=== PATIENT | female | born 1995 | race Two or more races ===

== ENCOUNTER 2023-05-15 14:11 | Outpatient (CLI) | payer OTHER | END 2023-05-15 15:59 | disposition home or self-care (01) | LOC: PRENATAL 14:11 | PROVIDERS: ATTEND Obstetrics & Gynecology Maternal & Fetal Medicine | DX: O35.3XX0 Maternal care for (suspected) damage to fetus from viral disease in mother, not applicable or unspecified (principal); O44.00 Complete placenta previa NOS or without hemorrhage, unspecified trimester; O99.210 Obesity complicating pregnancy, unspecified trimester; O41.00X0 Oligohydramnios, unspecified trimester, not applicable or unspecified; Z3A.30 30 weeks gestation of pregnancy ==

== ENCOUNTER 2023-06-12 09:07 | Outpatient (CLI) | payer OTHER | END 2023-06-12 09:12 | disposition home or self-care (01) | LOC: PRENATAL 09:07 | PROVIDERS: ATTEND Obstetrics & Gynecology Maternal & Fetal Medicine | DX: O26.849 Uterine size-date discrepancy, unspecified trimester (principal); O36.8199 Decreased fetal movements, unspecified trimester, other fetus; O99.210 Obesity complicating pregnancy, unspecified trimester; O41.00X0 Oligohydramnios, unspecified trimester, not applicable or unspecified; Z3A.34 34 weeks gestation of pregnancy ==

== ENCOUNTER 2023-06-21 10:37 | Outpatient (CLI) | payer OTHER | END 2023-06-21 11:02 | disposition home or self-care (01) | LOC: PRENATAL 10:37 | PROVIDERS: ATTEND Obstetrics & Gynecology Maternal & Fetal Medicine | DX: O36.8199 Decreased fetal movements, unspecified trimester, other fetus (principal); O99.210 Obesity complicating pregnancy, unspecified trimester; O41.00X0 Oligohydramnios, unspecified trimester, not applicable or unspecified; Z3A.35 35 weeks gestation of pregnancy ==